=== PATIENT | female | born 1970 | race American Indian/Alaskan Native ===

== ENCOUNTER 2019-01-09 22:45 | Emergency (ER) | payer BC ==
[2019-01-09] MEDS ORDERED: SOLU-Medrol ONE (22:58)
[2019-01-09] MEDS ORDERED: PEPCID IV ONE ×2 (22:58→23:01)
[2019-01-09] MEDS ORDERED: BENADRYL IV ONE (22:58)
[2019-01-09] MEDS ORDERED: BENADRYL ONE (22:58)
--- NOTE | 2019-01-09 22:58 | Emergency Department Report ---
ED Allergic Reaction HPI - General Chief complaint: Allergic Reaction Stated complaint: ALLERGIC REACTION Time Seen by Provider: 01/09/19 22:50 Source: family Mode of arrival: Ambulatory Limitations: No Limitations - History of Present Illness Initial Comments: Patient is a 48-year-old female that presents to emergency room with complaints of allergic reaction. Patient states she tried a new vegetarian chicken liborio today for dinner and after eating it she began having allergic reaction. Patient is complaining of lip swelling and patient swelling. patient denies difficulty breathing. Patient denies shortness of breath. Patient is also complaining of hives and redness to her skin. MD Complaint: allergic reaction, hives, facial swelling -: Sudden Symptoms: rash, itching, facial swelling, lip swelling. denies: difficulty swallowing, difficulty breathing, orolingual swelling, hoarseness, syncopy, dizziness, nausea, abdominal pain Severity: severe Treatment Prior to Arrival: none Previous Allergy History: none - Related Data Previous Rx's Medication Instructions Recorded Last Taken Type methylPREDNISolone [Medrol] 4 mg PO DAILY 6 Days #1 tab.ds.pk 01/09/19 Unknown Rx Allergies Allergy/AdvReac Type Severity Reaction Status Date / Time No Known Allergies Allergy Unverified 01/09/19 22:57 ED Review of Systems ROS: Stated complaint: ALLERGIC REACTION Other details as noted in HPI Constitutional: denies: chills, fever Eyes: denies: eye pain, eye discharge, vision change ENT: denies: ear pain, throat pain Respiratory: denies: cough, shortness of breath, wheezing Cardiovascular: denies: chest pain, palpitations Endocrine: no symptoms reported Gastrointestinal: denies: abdominal pain, nausea, vomiting, diarrhea Genitourinary: denies: urgency, dysuria, discharge Musculoskeletal: denies: back pain, joint swelling, arthralgia Skin: rash. denies: lesions Neurological: denies: headache, weakness, paresthesias Psychiatric: denies: anxiety, depression Hematological/Lymphatic: denies: easy bleeding, easy bruising ED Past Medical Hx - Past Medical History Previous Medical History?: Yes Hx Hypertension: Yes - Surgical History Past Surgical History?: Yes Additional Surgical History: Right Ovary removal - Family History Family history: no significant - Social History Smoking Status: Never Smoker Substance Use Type: None - Medications Home Medications: Home Medications Medication Instructions Recorded Confirmed Last Taken Type methylPREDNISolone [Medrol] 4 mg PO DAILY 6 Days #1 tab.ds.pk 01/09/19 Unknown Rx ED Physical Exam - General Limitations: No Limitations General appearance: alert, in no apparent distress - Head Head exam: Present: atraumatic, normocephalic - Eye Eye exam: Present: normal appearance, PERRL Pupils: Present: normal accommodation - ENT ENT exam: Present: normal exam, normal orophraynx, mucous membranes moist, other (facial swelling noted.) - Neck Neck exam: Present: normal inspection, full ROM. Absent: tenderness - Respiratory Respiratory exam: Present: normal lung sounds bilaterally. Absent: respiratory distress, wheezes, rales, rhonchi, stridor - Cardiovascular Cardiovascular Exam: Present: regular rate, normal rhythm. Absent: systolic murmur, diastolic murmur, rubs, gallop - GI/Abdominal GI/Abdominal exam: Present: soft, normal bowel sounds. Absent: distended, tenderness, guarding, rebound - Rectal Rectal exam: Present: deferred - Extremities Exam Extremities exam: Present: normal inspection - Back Exam Back exam: Present: normal inspection - Neurological Exam Neurological exam: Present: alert, oriented X3 - Psychiatric Psychiatric exam: Present: normal affect, normal mood - Skin Skin exam: Present: warm, dry, erythema, urticaria. Absent: rash ED Course Vital Signs 01/09/19 01/09/19 22:54 23:47 Temperature 97.5 F L 98.2 F Pulse Rate 105 H 89 Respiratory 18 Rate Blood Pressure 114/87 Blood Pressure 134/87 [Left] O2 Sat by Pulse 99 Oximetry - Reevaluation(s) Reevaluation #1: Patient states she is feeling better. Patient's swelling has resolved. Rash and hives have resolved. Skin back to normal tone 01/09/19 23:14 Patient continues to improve. Patient's face is back to normal. She does not have any rash or hives at this time. 01/09/19 23:37 Reevaluation #2: Discussed discharge instructions the patient. Patient is stable for discharge. Patient discharged home. Patient voiced understanding of discharge instructions. 01/10/19 00:01 ED Medical Decision Making - Medical Decision Making Patient is a 48-year-old female that presents emergency room with allergic reaction. Patient found to have facial swelling and lip swelling and hives. Patient was given Benadryl, IV Medrol and Pepcid. Patient responded well to therapy. Patient's symptoms have all resolved. Patient was given a steroid pack. Patient will be discharged home. Patient is stable for discharge. Patient given discharge instructions. Patient never had airway compromise or or shortness of breath or difficulty breathing or throat pain or difficulty swallowing. - Differential Diagnosis allergic reaction. Facial swelling. Hives. Critical care attestation.: If time is entered above; I have spent that time in minutes in the direct care of this critically ill patient, excluding procedure time. ED Disposition Clinical Impression: Facial swelling, Hives Allergic reaction Qualifiers: Encounter type: initial encounter Qualified Code(s): T78.40XA - Allergy, unspecified, initial encounter Disposition: TO HOME OR SELFCARE Is pt being admited?: No Does the pt Need Aspirin: No Condition: Stable Instructions: Urticaria (ED), Food Allergy (ED), Allergies (ED) Additional Instructions: Patient follow up with primary care in 2-3 days. Patient to follow up with ENT/instructor product inspection in 2-3 days. Patient to return to ER if condition worsens. Patient take meds as directed. Patient increase water. Patient to rest. Patient take Benadryl when necessary. Prescriptions: methylPREDNISolone [Medrol] 4 mg PO DAILY 6 Days #1 tab.ds.pk Referrals: VIANEY FRANCISCOOTTAWA MD PAYAL [Primary Care Provider] - 2-3 Days Time of Disposition: 23:47
[2019-01-09] MEDS ORDERED: SOLU-Medrol IV ONE (23:01)
[2019-01-10 00:34] VITALS: BP 134/87
== END 2019-01-10 00:34 | disposition home or self-care (01) ==
LOC: ED 22:45
DX: T78.40XA Allergy, unspecified, initial encounter (principal); L50.9 Urticaria, unspecified; I10 Essential (primary) hypertension; Y92.89 Other specified places as the place of occurrence of the external cause
CPT/HCPCS: 96374; 96375; 99283; J1200; J2930